=== PATIENT | male | born 1985 | race American Indian/Alaskan Native ===

== ENCOUNTER 2017-01-17 15:07 | Emergency (ER) | payer OTHER ==
[2017-01-17 15:17] VITALS: RESP 16; TEMP 98.8
[2017-01-17 16:14] LABS: BASO # 0.1 K/uL (0.0-0.2); BASO % 1.3 % (0.0-2.0); EOS # 0.2 K/uL (0.0-0.7); EOS % 3.8 % (0.0-4.0); HEMATOCRIT 40.7 % (35.0-51.0); LYMPH # 1.6 K/uL (1.0-4.3); LYMPH % 26.3 % (20.0-40.0); MEAN CELL VOLUME 92.5 fl (80.0-94.0); MEAN CORPUSCULAR HEMOGLOBIN 30.3 pg (27.0-31.0); MEAN CORPUSCULAR HGB CONC 32.8 g/dL (33.0-37.0); MEAN PLATELET VOLUME 8.2 fl (7.2-11.7); MONO # 0.3 K/uL (0.0-0.8); MONO % 5.4 % (0.0-10.0); NEUT # 3.9 K/uL (1.8-7.0); NEUT % 63.2 % (50.0-75.0); RED CELL DISTRIBUTION WIDTH 14.1 % (11.5-14.5); WHITE BLOOD COUNT 6.1 K/uL (4.8-10.8)
[2017-01-17 16:20] LABS: URINE BILIRUBIN NEGATIVE (NEGATIVE); URINE BLOOD MODERATE (NEGATIVE); URINE COLOR COLORLESS (YELLOW); URINE GLUCOSE (UA) NEG (Normal); URINE KETONE NEGATIVE (NEGATIVE); URINE LEUKOCYTE ESTERASE NEG Leu/uL (Negative); URINE PROTEIN NEGATIVE (NEGATIVE); URINE UROBILINOGEN 0.2-1.0 mg/dL (0.2-1.0)
[2017-01-17 16:24] LABS: RBC URINE 20 /hpf (0-3); WBC URINE 1 /hpf (0-5)
[2017-01-17 16:38] LABS: ALB/GLOB RATIO 1.3 (1.0-2.1); ALKALINE PHOSPHATASE 60 U/L (38-126); ALT/SGPT 24 U/L (21-72); AST/SGOT 29 U/L (17-59); BILIRUBIN,TOTAL 0.3 mg/dl (0.2-1.3); BLOOD UREA NITROGEN 12 mg/dl (9-20); CALCIUM 9.2 mg/dL (8.4-10.2); CARBON DIOXIDE 28 mmol/L (22-30); CHLORIDE 109 mmol/L (98-107); GFR AFRICAN-AMERICAN > 60; GLUCOSE,RANDOM 83 mg/dL (75-110); POTASSIUM 3.8 MMOL/L (3.6-5.0); SODIUM 146 mmol/l (132-148); TOTAL PROTEIN 7.3 G/DL (6.3-8.2)
--- NOTE | 2017-01-17 17:14 | ED PDOC ---
HPI: General Adult Time Seen by Provider: 01/17/17 15:17 Chief Complaint (Nursing): Medical Clearance Chief Complaint (Provider): medical and psychiatric clearance History Per: Patient History/Exam Limitations: no limitations Onset/Duration Of Symptoms: Unknown Current Symptoms Are (Timing): Still Present Severity: Mild Additional Complaint(s): 31yo male arrives under police custody for medical and psychiatric clearance. Per police he was wandering in supermarket parking lot approaching female patrons inappropriately. Per police was mumbling, had a warrant and was place under arrest. In ED denies complaints, awake, alert, denies suicidal or homicidal thoughts. Refuses to answer when asked if abuses drugs or etoh. Past Medical History Reviewed: Historical Data, Nursing Documentation, Vital Signs Vital Signs: Last Vital Signs Temp 98.8 F 01/17/17 15:15 Pulse 98 H 01/17/17 15:15 Resp 16 01/17/17 15:15 BP 151/88 H 01/17/17 15:15 Pulse Ox 98 01/17/17 15:15 - Medical History PMH: No Chronic Diseases - Family History Family History: States: Unknown Family Hx - Living Arrangements Living Arrangements: Other - Social History Current smoker - smoking cessation education provided: Yes Alcohol: Other (refuses to answer) - Allergies Allergies/Adverse Reactions: Allergies Allergy/AdvReac Type Severity Reaction Status Date / Time No Known Allergies Allergy Verified 01/17/17 15:14 Review of Systems Constitutional: Negative for: Fever, Chills Cardiovascular: Negative for: Chest Pain, Palpitations Respiratory: Negative for: Cough, Shortness of Breath Gastrointestinal: Negative for: Abdominal Pain, Diarrhea Genitourinary Male: Negative for: Dysuria, Frequency Musculoskeletal: Negative for: Neck Pain, Shoulder Pain Neurological: Negative for: Weakness, Numbness Physical Exam - Reviewed Nursing Documentation Reviewed: Yes Vital Signs Reviewed: Yes - Physical Exam Appears: Positive for: Non-toxic, No Acute Distress Head Exam: Positive for: ATRAUMATIC, NORMAL INSPECTION, NORMOCEPHALIC Skin: Positive for: Normal Color, Warm, DRY Eye Exam: Positive for: EOMI, Normal appearance, PERRL ENT: Positive for: Normal ENT Inspection Neck: Positive for: Normal, Painless ROM Cardiovascular/Chest: Positive for: Regular Rate, Rhythm Respiratory: Positive for: CNT, Normal Breath Sounds Gastrointestinal/Abdominal: Positive for: Normal Exam, Bowel Sounds, Soft Back: Positive for: Normal Inspection Extremity: Positive for: Normal ROM Neurologic/Psych: Positive for: Alert, Oriented, Mood/Affect (flat affect, poor insight but cooperative and calm), Other (equal strength). Negative for: Motor/ Sensory Deficits - Laboratory Results Result Diagrams: 01/17/17 15:45 01/17/17 15:45 - ECG O2 Sat by Pulse Oximetry: 98 Medical Decision Making Medical Decision Making: workup initiated for possible substance abuse in setting of bizarre behavior reported in field. labs reviewed CBC/ chem unremarkable Utox +opiates and PCP EKG sinus rhythm without ST or interval changes. Crisis eval in ED- per psychiatrist Dr Rodrigez can be discharged w police. Monitored in ED 2hrs, no signs somnolence or agitation to suggest opioid or PCP toxidrome. DC to police custody. Disposition - Clinical Impression Clinical Impression: Polysubstance abuse - Patient ED Disposition Is Patient to be Admitted: No Counseled Patient/Family Regarding: Studies Performed, Diagnosis, Need For Followup - Disposition Disposition: Discharged/Transfer to Law Enforcement Disposition Time: 17:18 Condition: STABLE Additional Instructions: Medically and psychiatrically stable for incarceration and/or police custody. Instructions: Polysubstance Abuse (ED)
[2017-01-17 17:37] VITALS: BP 142/70; PULSE 76; O2SAT 97
--- NOTE | 2017-01-18 23:06 | CARD ---
APPROVED REPORT EKG Measurement Heart [id number] <Conclusion> Normal sinus rhythm Early repolarization Normal ECG
== END 2017-01-17 17:35 ==
LOC: H.ER 15:07
DX: F19.10 Other psychoactive substance abuse, uncomplicated (principal)

== ENCOUNTER 2017-03-09 13:49 | Emergency (ER) | payer OTHER ==
[2017-03-09 14:02] VITALS: BMI 26.6
[2017-03-09 14:03] VITALS: BP 141/92; PULSE 91; RESP 16; TEMP 98; O2SAT 100
--- NOTE | 2017-03-09 14:08 | ED PDOC ---
HPI: Psych/Substance Abuse Time Seen by Provider: 03/09/17 14:01 Chief Complaint (Nursing): Psychiatric Evaluation Chief Complaint (Provider): Psych evaluation History Per: Patient History/Exam Limitations: no limitations Onset/Duration Of Symptoms: Hrs Additional Complaint(s): Patient is a 31 y/o male with no significant past medical history brought to the emergency department by EMS for a psych evaluation. Per EMS, patient was running around nude and claiming that he wanted to kill himself. In the ED, patient denies these claims. Also denies any suicidal ideation, hallucinations, homicidal ideation, or any other complaints. PCP: none provided. Past Medical History Vital Signs: Last Vital Signs Temp 98.0 F 03/09/17 13:51 Pulse 91 H 03/09/17 13:51 Resp 16 03/09/17 13:51 BP 141/92 H 03/09/17 13:51 Pulse Ox 100 03/09/17 13:51 - Medical History PMH: Denies: Diabetes, Hepatitis, HIV, HTN, Seizures, Sexually Transmitted Disease - Family History Family History: States: Unknown Family Hx - Allergies Allergies/Adverse Reactions: Allergies Allergy/AdvReac Type Severity Reaction Status Date / Time No Known Allergies Allergy Verified 01/17/17 15:14 Review of Systems ROS Statement: Except As Marked, All Systems Reviewed And Found Negative Psych: Negative for: Suicidal ideation, Other (homicidal ideation, hallucinations) Physical Exam - Reviewed Nursing Documentation Reviewed: Yes Vital Signs Reviewed: Yes - Physical Exam Appears: Positive for: No Acute Distress (appropriate, with normal expression) Head Exam: Positive for: ATRAUMATIC Skin: Positive for: Normal Color, Warm, Dry Eye Exam: Positive for: Normal appearance Neck: Positive for: Normal Cardiovascular/Chest: Positive for: Regular Rate, Rhythm Respiratory: Negative for: Accessory Muscle Use, Respiratory Distress Extremity: Positive for: Normal ROM Neurologic/Psych: Positive for: Alert, Oriented (x3) - Laboratory Results Result Diagrams: 03/09/17 14:40 03/09/17 14:40 - ECG O2 Sat by Pulse Oximetry: 100 (RA) Pulse Ox Interpretation: Normal Medical Decision Making Medical Decision Making: Time: 13:55 Initial impression: Psych evaluation Initial plan: Crisis evaluation Labs Urine drug screening Urinalysis 1:1 sitter due to risk for elopement 14:00 Crisis made aware of patient. 15:14: PT stable well appearing and medically cleared for further crisis eval pt is cleared for polysubstance abuse for MD Rain ~ Scribe Attestation: Documented by Huma Bejarano, acting as a scribe for ABELINO Rivera. Provider Scribe Attestation: All medical record entries made by the Scribe were at my direction and personally dictated by me. I have reviewed the chart and agree that the record accurately reflects my personal performance of the history, physical exam, medical decision making, and the department course for this patient. I have also personally directed, reviewed, and agree with the discharge instructions and disposition. Disposition - Clinical Impression Clinical Impression: Polysubstance abuse - Patient ED Disposition Is Patient to be Admitted: No Counseled Patient/Family Regarding: Studies Performed, Diagnosis, Need For Followup, Rx Given - Disposition Disposition: Routine/Home Disposition Time: 15:36 Condition: STABLE Instructions: Polysubstance Abuse (ED) Forms: [employer] ([place])
[2017-03-09 14:54] LABS: BASO % 1.1 % (0.0-2.0); EOS # 0.1 K/uL (0.0-0.7); EOS % 3.4 % (0.0-4.0); HEMATOCRIT 43.3 % (35.0-51.0); LYMPH # 1.3 K/uL (1.0-4.3); LYMPH % 34.4 % (20.0-40.0); MEAN CELL VOLUME 92.1 fl (80.0-94.0); MEAN CORPUSCULAR HEMOGLOBIN 30.1 pg (27.0-31.0); MEAN CORPUSCULAR HGB CONC 32.7 g/dL (33.0-37.0); MEAN PLATELET VOLUME 8.6 fl (7.2-11.7); MONO # 0.2 K/uL (0.0-0.8); MONO % 4.8 % (0.0-10.0); NEUT # 2.2 K/uL (1.8-7.0); NEUT % 56.3 % (50.0-75.0); NRBC % 0.1 % (0.0-0.0); RED CELL DISTRIBUTION WIDTH 14.9 % (11.5-14.5); WHITE BLOOD COUNT 3.9 K/uL (4.8-10.8)
[2017-03-09 15:02] LABS: ALB/GLOB RATIO 1.3 (1.0-2.1); ALCOHOL SERUM < 10 mg/dl (0-10); ALKALINE PHOSPHATASE 52 U/L (38-126); ALT/SGPT 35 U/L (21-72); AST/SGOT 22 U/L (17-59); BILIRUBIN,TOTAL 0.3 mg/dl (0.2-1.3); BLOOD UREA NITROGEN 16 mg/dl (9-20); CALCIUM 8.8 mg/dL (8.4-10.2); CARBON DIOXIDE 26 mmol/L (22-30); CHLORIDE 105 mmol/L (98-107); GFR AFRICAN-AMERICAN > 60; GLUCOSE,RANDOM 91 mg/dL (75-110); POTASSIUM 3.6 MMOL/L (3.6-5.0); SODIUM 140 mmol/l (132-148); TOTAL PROTEIN 7.4 G/DL (6.3-8.2)
[2017-03-09 15:03] LABS: RBC URINE 10 /hpf (0-3); URINE BILIRUBIN NEGATIVE (NEGATIVE); URINE BLOOD MODERATE (NEGATIVE); URINE COLOR YELLOW (YELLOW); URINE GLUCOSE (UA) NEG (Normal); URINE KETONE NEGATIVE (NEGATIVE); URINE LEUKOCYTE ESTERASE NEG Leu/uL (Negative); URINE PROTEIN NEGATIVE (NEGATIVE); URINE UROBILINOGEN 0.2-1.0 mg/dL (0.2-1.0)
== END 2017-03-09 15:51 | disposition home or self-care (01) ==
LOC: H.ER 13:49
DX: F19.10 Other psychoactive substance abuse, uncomplicated (principal)

== ENCOUNTER 2017-04-06 07:51 | Emergency (ER) | payer OTHER ==
[2017-04-06 07:52] VITALS: BMI 26.6
[2017-04-06 08:00] VITALS: TEMP 97.5
[2017-04-06] MEDS ORDERED: Sodium Chloride 0.9% 1,000 ML IV STA (08:29)
[2017-04-06] MEDS ORDERED: Naloxone 0.4 mg/ml Inj (Adult) IV ONE ×2 (08:30)
--- NOTE | 2017-04-06 08:40 | ED PDOC ---
HPI: General Adult Time Seen by Provider: 04/06/17 08:08 Chief Complaint (Nursing): Dizziness/Lightheaded Chief Complaint (Provider): altered mental status History Per: Patient History/Exam Limitations: other (uncooperative) Onset/Duration Of Symptoms: Days (x1) Current Symptoms Are (Timing): Still Present Additional Complaint(s): Clemente is a 31 y/o male who was brought to the ED for evaluation after being found dozing off in front of a building. States he is not sure why he dozed off. Denies drug or alcohol use. Patient offers no complaints, states he wants to go home. Denies history of seizures or any medical or psychiatric history. No chest pain, dyspnea, weakness, headaches, dizziness, abd pain. Per previous records, patient has history of PCP and marijuana abuse. PMD: None provided Past Medical History Reviewed: Historical Data, Nursing Documentation, Vital Signs Vital Signs: Last Vital Signs Temp 97.5 F L 04/06/17 08:00 Pulse 90 04/06/17 08:00 Resp 17 04/06/17 08:00 BP 128/77 04/06/17 08:00 Pulse Ox 97 04/06/17 10:55 - Medical History PMH: No Chronic Diseases Denies: Diabetes, Hepatitis, HIV, HTN, Seizures, Sexually Transmitted Disease - Surgical History Surgical History: No Surg Hx - Family History Family History: States: Unknown Family Hx - Social History Current smoker - smoking cessation education provided: No Alcohol: None Drugs: Denies - Allergies Allergies/Adverse Reactions: Allergies Allergy/AdvReac Type Severity Reaction Status Date / Time No Known Allergies Allergy Verified 04/06/17 08:10 Review of Systems ROS Statement: Except As Marked, All Systems Reviewed And Found Negative Constitutional: Negative for: Fever, Chills Eyes: Negative for: Vision Change Cardiovascular: Negative for: Chest Pain, Light Headedness Respiratory: Negative for: Cough, Shortness of Breath Gastrointestinal: Negative for: Nausea, Vomiting, Diarrhea Neurological: Negative for: Weakness, Numbness, Seizures, Headache, Dizziness Physical Exam - Reviewed Nursing Documentation Reviewed: Yes Vital Signs Reviewed: Yes - Physical Exam Appears: Positive for: Non-toxic, No Acute Distress Head Exam: Positive for: ATRAUMATIC, NORMAL INSPECTION, NORMOCEPHALIC Skin: Positive for: Normal Color, Warm, Dry Eye Exam: Positive for: EOMI, Normal appearance, PERRL ENT: Positive for: Normal ENT Inspection Neck: Positive for: Normal, Painless ROM, Supple Cardiovascular/Chest: Positive for: Regular Rate, Rhythm. Negative for: Murmur Respiratory: Positive for: Normal Breath Sounds. Negative for: Accessory Muscle Use, Respiratory Distress Gastrointestinal/Abdominal: Positive for: Normal Exam, Soft. Negative for: Tenderness Back: Positive for: Normal Inspection. Negative for: L CVA Tenderness, R CVA Tenderness, Vertebral Tenderness Extremity: Positive for: Normal ROM. Negative for: Pedal Edema, Deformity Neurologic/Psych: Positive for: Alert, frame runner II-XII, Oriented. Negative for: Motor/Sensory Deficits, Aphasia, Facial Droop - Laboratory Results Result Diagrams: 04/06/17 08:53 04/06/17 08:53 Interpretation Of Abn Labs: pcp and etoh - ECG ECG: Positive for: Interpreted By Me, Viewed By Me ECG Rhythm: Positive for: Normal QRS, Normal ST Segment, Sinus Rhythm O2 Sat by Pulse Oximetry: 97 (RA) Pulse Ox Interpretation: Normal - CT Scan/US CT Head Other Rad Studies (CT/US): Read By Radiologist, Radiology Report Reviewed Other Rad Interpretation: Unremarkable unenhanced CT of the Head - Progress ED Course And Treament: Labs reviewed, and are grossly normal. Alcohol level is 160. Positive for PCP. CT negative. 1405: Stable. AAOx3. Stable. Tolerated PO. Fu with pcp. Not suicidal or homicidal. Active. Ambulated with no issues. Medical Decision Making Medical Decision Making: Time: 8:28 Initial Plan: --Alcohol serum --BMP --Urine drug screen --CBC --Urine dip --NS IV 1000 ml at 1000 mls/hr --POC blood glucose --Patient placed on 1:1 observation due to risk of elopement --Pending CT Head w/o contrast Scribe Attestation: Documented by Mary Kate Rivero, acting as a scribe for Yariel Garcia MD Provider Scribe Attestation: All medical record entries made by the Scribe were at my direction and personally dictated by me. I have reviewed the chart and agree that the record accurately reflects my personal performance of the history, physical exam, medical decision making, and the department course for this patient. I have also personally directed, reviewed, and agree with the discharge instructions and disposition. Disposition - Clinical Impression Clinical Impression: Polysubstance abuse - Patient ED Disposition Is Patient to be Admitted: No Counseled Patient/Family Regarding: Studies Performed, Diagnosis, Need For Followup - Disposition Referrals: [facility]Outside] - 04/10/17 Disposition: Routine/Home Disposition Time: 14:06 Condition: STABLE Additional Instructions: Return if not better in 3 days. Instructions: Polysubstance Abuse (ED)
[2017-04-06 09:07] LABS: ALCOHOL SERUM 160 mg/dl (0-10); BASO # 0.1 K/uL (0.0-0.2); BASO % 1.1 % (0.0-2.0); BLOOD UREA NITROGEN 14 mg/dl (9-20); CALCIUM 9.4 mg/dL (8.4-10.2); CARBON DIOXIDE 23 mmol/L (22-30); CHLORIDE 109 mmol/L (98-107); EOS # 0.1 K/uL (0.0-0.7); EOS % 2.2 % (0.0-4.0); GFR AFRICAN-AMERICAN > 60; GLUCOSE,RANDOM 76 mg/dL (75-110); HEMATOCRIT 45.2 % (35.0-51.0); LYMPH # 1.9 K/uL (1.0-4.3); LYMPH % 29.4 % (20.0-40.0); MEAN CORPUSCULAR HEMOGLOBIN 30.3 pg (27.0-31.0); MEAN CORPUSCULAR HGB CONC 33.3 g/dL (33.0-37.0); MEAN PLATELET VOLUME 8.7 fl (7.2-11.7); MONO # 0.3 K/uL (0.0-0.8); MONO % 4.5 % (0.0-10.0); NEUT % 62.8 % (50.0-75.0); NRBC % 0.2 % (0.0-0.0); RED CELL DISTRIBUTION WIDTH 14.4 % (11.5-14.5); SODIUM 148 mmol/l (132-148); WHITE BLOOD COUNT 6.4 K/uL (4.8-10.8)
--- NOTE | 2017-04-06 09:27 | CT ---
PROCEDURE: CT HEAD WITHOUT CONTRAST. HISTORY: headache COMPARISON: None available. TECHNIQUE: Axial computed tomography images were obtained through the head/brain without intravenous contrast. Radiation dose: Total exam DLP = 1088.77 mGy-cm. This CT exam was performed using one or more of the following dose reduction techniques: Automated exposure control, adjustment of the mA and/or kV according to patient size, and/or use of iterative reconstruction technique. FINDINGS: HEMORRHAGE: No intracranial hemorrhage. BRAIN: Normal acevedo-white matter differentiation and density are appreciated throughout the cerebrum and cerebellum with the brainstem appearing unremarkable as well. There is no mass effect. There is no suspicious extra-axial fluid collection in the midline brain anatomy appears diffusely unremarkable. VENTRICLES: Unremarkable. No hydrocephalus. CALVARIUM: Unremarkable. PARANASAL SINUSES: Unremarkable as visualized. No significant inflammatory changes. MASTOID AIR CELLS: Unremarkable as visualized. No inflammatory changes. OTHER FINDINGS: None. IMPRESSION: Unremarkable unenhanced CT of the Head.
[2017-04-06 15:31] VITALS: BP 101/64; PULSE 61; RESP 19; O2SAT 100
== END 2017-04-06 15:28 | disposition home or self-care (01) ==
LOC: H.ER 07:51
DX: F12.10 Cannabis abuse, uncomplicated (principal)
CPT/HCPCS: 70450; 80048; 80320; 80324; 80345; 80346; 80349; 80353; 80358; 80361; 82948; 83992; 85025; 99284; J7040

== ENCOUNTER 2017-04-19 18:27 | Inpatient (IN) | payer MEDICAID, OTHER ==
[2017-04-19 18:27] VITALS: BMI 26.6
[2017-04-19 18:52] VITALS: O2SAT 99
--- NOTE | 2017-04-19 19:18 | ED PDOC ---
HPI: Psych/Substance Abuse Time Seen by Provider: 04/19/17 18:51 Chief Complaint (Nursing): Psychiatric Evaluation Chief Complaint (Provider): crisis eval History Per: Patient Additional Complaint(s): 31-year-old male presents to emergency department for crisis evaluation. Patient 's cousin visited him at home and noted that he was not in a good state of physical or mental health. Mobile crisis unit was sent to home and patient, along with his sister with whom he lives, was brought here for crisis eval. Patient states he is just here for "a checkup." He offers no acute complaints. He denies any suicidal or homicidal ideation. He denies auditory or visual hallucinations. Patient also denies alcohol or drug use. Past Medical History Reviewed: Historical Data, Nursing Documentation, Vital Signs Vital Signs: Last Vital Signs Temp 99.2 F 04/19/17 18:49 Pulse 120 H 04/19/17 18:49 Resp 20 04/19/17 18:49 BP 157/91 H 04/19/17 18:49 Pulse Ox 99 04/19/17 18:49 - Medical History Other PMH: Patient denies any medical problems - Family History Family History: States: No Known Family Hx - Living Arrangements Living Arrangements: With Family - Social History Current smoker - smoking cessation education provided: No Alcohol: None Drugs: Denies - Allergies Allergies/Adverse Reactions: Allergies Allergy/AdvReac Type Severity Reaction Status Date / Time No Known Allergies Allergy Verified 04/06/17 08:10 Review of Systems ROS Statement: Except As Marked, All Systems Reviewed And Found Negative Constitutional: Negative for: Fever Cardiovascular: Negative for: Chest Pain Respiratory: Negative for: Cough Gastrointestinal: Negative for: Nausea, Vomiting Psych: Negative for: Psychosis, Suicidal ideation Physical Exam - Reviewed Nursing Documentation Reviewed: Yes Vital Signs Reviewed: Yes - Physical Exam Appears: Positive for: Well, Non-toxic, No Acute Distress Head Exam: Positive for: ATRAUMATIC Skin: Negative for: Rash Eye Exam: Positive for: Normal appearance Cardiovascular/Chest: Positive for: Regular Rate, Rhythm Respiratory: Positive for: Normal Breath Sounds Neurologic/Psych: Positive for: Alert, Oriented, Mood/Affect (flat affect) - Laboratory Results Result Diagrams: 04/19/17 19:20 04/19/17 19:20 - ECG O2 Sat by Pulse Oximetry: 99 Pulse Ox Interpretation: Normal - Other Rad CXR X-Ray: Interpreted by Me, Viewed By Me X-Ray Interpretation: no acute finding Medical Decision Making Medical Decision Makin31 year old here for crisis eval Previous records reviewed. Patient was evaluated by psychiatric department on April 06 in the ED and at that time was positive for alcohol and PCP. Previous visit on March 09 also showed positive PCP use. Plan: CBC CMP Urine drug screen Alcohol level Urinalysis Chest x-ray EKG 1:1 bedside observation Crisis consult As per crisis counselor and psychiatrist continuous washer operator, Dr. Michel, patient does meet criteria for admission. Patient agrees to stay and signed himself in. Patient is medically stable for psychiatric admission. Disposition - Clinical Impression Clinical Impression: Schizophrenia - Patient ED Disposition Is Patient to be Admitted: Yes - Disposition Disposition Time: 21:18 Condition: STABLE - Pt Status Changed To: Hospital Disposition Of: Inpatient - Admit Certification Admit to Inpatient:: After my assessment, the patient will require hospitalization for at least two midnights. This is because of the severity of symptoms shown, intensity of services needed, and/or the medical risk in this patient being treated as an outpatient. - POA Present On Arrival: None Results - Lab Results Lab Results: 04/19/17 04/19/17 04/19/17 19:30 19:30 19:20 WBC 3.4 L RBC 4.31 L Hgb 12.9 D Hct 40.5 MCV 93.9 D MCH 29.9 MCHC 31.9 L RDW 15.0 H Plt Count 179 MPV 8.3 Neut % (Auto) 63.7 Lymph % (Auto) 23.8 [place] % (Auto) 8.9 Eos % (Auto) 2.7 Baso % (Auto) 0.9 Neut # 2.1 Lymph # 0.8 L [place] # 0.3 Eos # 0.1 Baso # 0.0 Sodium Potassium Chloride Carbon Dioxide Anion Gap BUN Creatinine Est GFR ( Amer) Est GFR (Non-Af Amer) Random Glucose Calcium Total Bilirubin AST ALT Alkaline Phosphatase Total Protein Albumin Globulin Albumin/Globulin Ratio Urine Color Yellow Urine Clarity Clear Urine pH 6.0 Ur Specific [place] 1.025 Urine Protein 30 Urine Glucose (UA) Neg Urine Ketones Trace Urine Blood Moderate Urine Nitrate Negative Urine Bilirubin Negative Urine Urobilinogen 0.2-1.0 Ur Leukocyte Esterase Neg Urine RBC (Auto) 20 H Urine Microscopic WBC 1 Ur Squamous Epith Cells 2 Urine Bacteria Rare Urine Opiates Screen Negative Urine Methadone Screen Negative Ur Barbiturates Screen Negative Ur Phencyclidine Scrn Positive H Ur Amphetamines Screen Negative U Benzodiazepines Scrn Negative U Oth Cocaine Metabols Negative U Cannabinoids Screen Positive H Alcohol, Quantitative 04/19/17 19:20 WBC RBC Hgb Hct MCV MCH MCHC RDW Plt Count MPV Neut % (Auto) Lymph % (Auto) [place] % (Auto) Eos % (Auto) Baso % (Auto) Neut # Lymph # [place] # Eos # Baso # Sodium 139 Potassium 3.5 L Chloride 106 Carbon Dioxide 26 Anion Gap 11 BUN 14 Creatinine 1.0 Est GFR ( Amer) > 60 Est GFR (Non-Af Amer) > 60 Random Glucose 83 Calcium 8.8 Total Bilirubin 0.4 AST 50 ALT 44 Alkaline Phosphatase 52 Total Protein 7.2 Albumin 4.2 Globulin 3.1 Albumin/Globulin Ratio 1.3 Urine Color Urine Clarity Urine pH Ur Specific [place] Urine Protein Urine Glucose (UA) Urine Ketones Urine Blood Urine Nitrate Urine Bilirubin Urine Urobilinogen Ur Leukocyte Esterase Urine RBC (Auto) Urine Microscopic WBC Ur Squamous Epith Cells Urine Bacteria Urine Opiates Screen Urine Methadone Screen Ur Barbiturates Screen Ur Phencyclidine Scrn Ur Amphetamines Screen U Benzodiazepines Scrn U Oth Cocaine Metabols U Cannabinoids Screen Alcohol, Quantitative < 10
[2017-04-19 19:35] LABS: BASO % 0.9 % (0.0-2.0); EOS # 0.1 K/uL (0.0-0.7); EOS % 2.7 % (0.0-4.0); HEMATOCRIT 40.5 % (35.0-51.0); LYMPH # 0.8 K/uL (1.0-4.3); LYMPH % 23.8 % (20.0-40.0); MEAN CELL VOLUME 93.9 fl (80.0-94.0); MEAN CORPUSCULAR HEMOGLOBIN 29.9 pg (27.0-31.0); MEAN CORPUSCULAR HGB CONC 31.9 g/dL (33.0-37.0); MEAN PLATELET VOLUME 8.3 fl (7.2-11.7); MONO # 0.3 K/uL (0.0-0.8); MONO % 8.9 % (0.0-10.0); NEUT # 2.1 K/uL (1.8-7.0); NEUT % 63.7 % (50.0-75.0); NRBC % 0.1 % (0.0-0.0); WHITE BLOOD COUNT 3.4 K/uL (4.8-10.8)
[2017-04-19 19:46] LABS: ALB/GLOB RATIO 1.3 (1.0-2.1); ALCOHOL SERUM < 10 mg/dl (0-10); ALKALINE PHOSPHATASE 52 U/L (38-126); ALT/SGPT 44 U/L (21-72); AST/SGOT 50 U/L (17-59); BILIRUBIN,TOTAL 0.4 mg/dl (0.2-1.3); BLOOD UREA NITROGEN 14 mg/dl (9-20); CALCIUM 8.8 mg/dL (8.4-10.2); CARBON DIOXIDE 26 mmol/L (22-30); CHLORIDE 106 mmol/L (98-107); GFR AFRICAN-AMERICAN > 60; GLUCOSE,RANDOM 83 mg/dL (75-110); POTASSIUM 3.5 MMOL/L (3.6-5.0); SODIUM 139 mmol/l (132-148); TOTAL PROTEIN 7.2 G/DL (6.3-8.2)
[2017-04-19 19:56] LABS: RBC URINE 20 /hpf (0-3); URINE BACTERIA RARE (<OCC); URINE BILIRUBIN NEGATIVE (NEGATIVE); URINE BLOOD MODERATE (NEGATIVE); URINE COLOR YELLOW (YELLOW); URINE GLUCOSE (UA) NEG (Normal); URINE KETONE TRACE mg/dL (NEGATIVE); URINE LEUKOCYTE ESTERASE NEG Leu/uL (Negative); URINE PROTEIN 30 mg/dL (NEGATIVE); URINE UROBILINOGEN 0.2-1.0 mg/dL (0.2-1.0); WBC URINE 1 /hpf (0-5)
[2017-04-19] MEDS ORDERED: Alum-Mag Hydrox-Simethicone Susp (30 mL) PO PRN (23:48)
[2017-04-19] MEDS ORDERED: Magnesium Hydroxide Susp 30 ml UD PO PRN (23:48)
[2017-04-19] MEDS ORDERED: DiphenhydrAMINE 50 mg/ml Inj IM PRN (23:48)
--- NOTE | 2017-04-20 00:14 | PCM.BM ---
Treatment Plan Problems - Problems identified on initial assessmt Medication nonadherence Date Initiated: 04/20/17 Time Initiated: 00:13 Assessment reference: NA Status: Active Auditory Hallucinations Date Initiated: 04/20/17 Time Initiated: 00:13 Assessment reference: NA Status: Active Self Care Deficit Date Initiated: 04/20/17 Time Initiated: 00:14 Assessment reference: NA Status: Active Treatment assets and liabiliti Patient Assests: ADL independent, negotiates basic needs Patient Liabilities: poor support system, substance abuse - Milieu Protocol Maintain good personal hygiene: daily Encourage regular showers, every shift Remind patient to perform daily oral care Conduct patient checks and document Observation sheet: Q15 minutes Maintain personal safety: every shift Educate patient to report safety concerns to staff, every shift Monitor environment for contraband/sharps Medication safety: Monitor for expected outcome, potential side effects: every shift, Assess barriers to learning: every shift, Assess readiness for medication education: every shift
[2017-04-20 07:41] LABS: T4 7.53 ug/dl (5.5-11.0)
[2017-04-20 07:54] LABS: THYROID STIMULATING HORMONE 2.45 mIU/ML (0.46-4.68)
--- NOTE | 2017-04-20 10:12 | RAD ---
HISTORY: clearance COMPARISON: No prior. FINDINGS: LUNGS: No active pulmonary disease. PLEURA: No significant pleural effusion identified, no pneumothorax apparent. CARDIOVASCULAR: Normal. OSSEOUS STRUCTURES: No significant abnormalities. VISUALIZED UPPER ABDOMEN: Normal. OTHER FINDINGS: None. IMPRESSION: No active disease.
--- NOTE | 2017-04-20 10:36 | CARD ---
APPROVED REPORT EKG Measurement Heart [id number] <Conclusion> Normal sinus rhythm Normal ECG
[2017-04-20] MEDS: Risperidone M tab 1 MG PO SCH ×2 (11:28→17:36)
[2017-04-20] MEDS: Divalproex 500 mg DR(BID formulation) PO SCH ×2 (11:28→17:36)
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
[2017-04-21] MEDS: Risperidone M tab 1 MG PO SCH (09:15)
[2017-04-21] MEDS: Divalproex 500 mg DR(BID formulation) PO SCH ×2 (09:56→17:44)
--- NOTE | 2017-04-21 14:30 | PCM.PYCHPN ---
Psychiatric Progress Note - Psychiatric Progress Note Patient seen today, length of contact: pt evaluated discussed with team chart reviewed Patient Chief Complaint: I NEED TO TAKE CARE OF MYSELF Problems Identified/Issues Discussed: PT ON EVALUATION UNKEMPT, POOR EYE CONTACT THOUGHT PROCESS TANGENTIAL AND CIRCUMSTANTIAL WITH THOUGHT BLOCKING PT DENIED ANY CURRENT COMMAND HALLUCINATIONS, DENIED S/H I , AGREED TO BE STARTED ON RISPERIDONE CONSTA Medical Problems: multiple inpatient hospitalizations, history of non compliance with medications DSM 5 Symptoms Update: SCHIZOPHRENIA CANNABIS USE DISORDER PCP USE DISORDER Medication Change: Yes (INCREASE RISPERIDONE) Medical Record Reviewed: Yes Mental Status Examination - Cognitive Function Orientation: Person, Place Memory: Intact Attention: Poor Concentration: Poor Association: Loose Fund of Knowledge: Poor Decription of patient's judgement and insights: POOR INSIGHT AND JUDGEMENT - Mood Mood: Anxious - Affect Affect: Constricted - Speech Speech: Loud - Formal Thought Process Formal Thought Process: Hallucinations, Paranoia, Circumstantial Psychotic Thoughts and Behaviors: PT THOUGHT PROCESS DISORGANIZED, DENIED COMMAND HALLUCINATIONS - Suicidal Ideation Suicidal Ideation: No - Homicidal Ideation Homicidal Ideation: No Goal/Treatment Plan - Goal/Treatment Plan Need for Continued Stay: Remain at risks for inpatient hospitalization, Discharge may exacerbated symptoms Progress Toward Problem(s) and Goals/Treatment Plan: DEPAKOTE 500MG BID INCREASE RISPERIDONE 1MG DAILY AND 2MG QHS WITH PLAN TO UPTITRATE SUPPORTIVE AND GROUP THERAPY Estimated Date of D/C: 04/25/17
[2017-04-21] MEDS: Risperidone M TAB 2 MG PO SCH (21:03)
[2017-04-22] MEDS: Divalproex 500 mg DR(BID formulation) PO SCH ×2 (10:19→16:53)
[2017-04-22] MEDS: Risperidone M tab 1 MG PO SCH (10:19)
[2017-04-22] MEDS ORDERED: risperiDONE Consta 25mg/2ml Syringe IM ONE (10:50)
--- NOTE | 2017-04-22 10:56 | PCM.PYCHPN ---
Psychiatric Progress Note - Psychiatric Progress Note Patient seen today, length of contact: pt evaluated discussed with team chart reviewed Patient Chief Complaint: I am doing well Problems Identified/Issues Discussed: PT ON EVALUATION UNKEMPT, POOR EYE CONTACT THOUGHT PROCESS TANGENTIAL AND CIRCUMSTANTIAL WITH THOUGHT BLOCKING, PT WITH PARTIAL COMPLIANCE WITH MEDICATIONS PT DENIED ANY CURRENT COMMAND HALLUCINATIONS, DENIED S/H I , AGREED TO BE STARTED ON RISPERIDONE CONSTA Medical Problems: multiple inpatient hospitalizations, history of non compliance with medications DSM 5 Symptoms Update: SCHIZOPHRENIA POLYSUBSTANCE USE DISORDER Medication Change: Yes (START RISPERIDONE CONSTA) Medical Record Reviewed: Yes Mental Status Examination - Cognitive Function Orientation: Person, Place Memory: Intact Attention: Poor Concentration: Poor Association: Loose Fund of Knowledge: Poor Decription of patient's judgement and insights: POOR INSIGHT AND JUDGEMENT - Mood Mood: Anxious - Affect Affect: Constricted - Speech Speech: Loud - Formal Thought Process Formal Thought Process: Hallucinations, Paranoia, Circumstantial Psychotic Thoughts and Behaviors: PT THOUGHT PROCESS DISORGANIZED, DENIED COMMAND HALLUCINATIONS - Suicidal Ideation Suicidal Ideation: No - Homicidal Ideation Homicidal Ideation: No Goal/Treatment Plan - Goal/Treatment Plan Need for Continued Stay: Remain at risks for inpatient hospitalization, Discharge may exacerbated symptoms Progress Toward Problem(s) and Goals/Treatment Plan: DEPAKOTE 500MG BID INCREASE RISPERIDONE 1MG DAILY AND 2MG QHS AND START RISPERIDONE CONSTA 25 MG IM SUPPORTIVE AND GROUP THERAPY Estimated Date of D/C: 04/25/17
[2017-04-22] MEDS: Risperidone M TAB 2 MG PO SCH (21:17)
[2017-04-23] MEDS: Risperidone M tab 1 MG PO SCH (09:14)
[2017-04-23] MEDS: Divalproex 500 mg DR(BID formulation) PO SCH ×2 (09:14→17:35)
--- NOTE | 2017-04-23 11:33 | PCM.PYCHPN ---
Psychiatric Progress Note - Psychiatric Progress Note Patient seen today, length of contact: pt evaluated discussed with team chart reviewed Patient Chief Complaint: I am alright Problems Identified/Issues Discussed: PT ON EVALUATION CONTINUES TO BE UNKEMPT, DRESSED IN A HOSPITAL GOWN, BETTER EYE CONTACT AND MORE COMMUNICATION WITH STAFF, THOUGHT PROCESS CIRCUMSTANTIAL WITH THOUGHT BLOCKING, PT WITH PARTIAL COMPLIANCE WITH MEDICATIONS PT DENIED ANY CURRENT COMMAND HALLUCINATIONS, DENIED S/H I , STARTED ON RISPERIDONE CONSTA 25 MG YESTERDAY, DENIED ANY CURRENT SIDE EFFECTS OF MEDICATIONS Medical Problems: multiple inpatient hospitalizations, history of non compliance with medications DSM 5 Symptoms Update: SCHIZOAFFECTIVE DISORDER BIPOLAR Medication Change: Yes (START COGENTIN 0.5MG BID) Medical Record Reviewed: Yes Mental Status Examination - Cognitive Function Orientation: Person, Place Memory: Intact Attention: Poor Concentration: Poor Association: Loose Fund of Knowledge: Poor Decription of patient's judgement and insights: POOR INSIGHT AND JUDGEMENT - Mood Mood: Anxious - Affect Affect: Constricted - Speech Speech: Loud - Formal Thought Process Formal Thought Process: Hallucinations, Paranoia, Circumstantial Psychotic Thoughts and Behaviors: PT THOUGHT PROCESS DISORGANIZED, DENIED COMMAND HALLUCINATIONS - Suicidal Ideation Suicidal Ideation: No - Homicidal Ideation Homicidal Ideation: No Goal/Treatment Plan - Goal/Treatment Plan Need for Continued Stay: Remain at risks for inpatient hospitalization, Discharge may exacerbated symptoms Progress Toward Problem(s) and Goals/Treatment Plan: DEPAKOTE 500MG BID CONTINUE WITH RISPERIDONE 1MG DAILY AND 2MG QHS AND START RISPERIDONE CONSTA 25 MG IM START COGENTIN 0.5 MG BID SUPPORTIVE AND GROUP THERAPY Estimated Date of D/C: 04/25/17
[2017-04-23] MEDS: Risperidone M TAB 2 MG PO SCH (21:07)
[2017-04-24] MEDS: Risperidone M tab 1 MG PO SCH (09:28)
[2017-04-24] MEDS: Divalproex 500 mg DR(BID formulation) PO SCH ×2 (09:28→17:02)
--- NOTE | 2017-04-24 14:05 | PCM.PYCHPN ---
Psychiatric Progress Note - Psychiatric Progress Note Patient seen today, length of contact: pt evaluated discussed with team chart reviewed Patient Chief Complaint: I am alright Problems Identified/Issues Discussed: PT ON EVALUATION CONTINUES TO BE UNKEMPT, DRESSED IN A HOSPITAL GOWN, BETTER EYE CONTACT AND MORE COMMUNICATION WITH STAFF, THOUGHT PROCESS CIRCUMSTANTIAL WITH THOUGHT BLOCKING, PT WITH PARTIAL COMPLIANCE WITH MEDICATIONS PT DENIED ANY CURRENT COMMAND HALLUCINATIONS, DENIED S/H I , STARTED ON RISPERIDONE CONSTA 25 MG YESTERDAY, DENIED ANY CURRENT SIDE EFFECTS OF MEDICATIONS Medical Problems: pt on evaluation continues to be unkempt not attending to personal hygiene disorganized, speech, sexually preoccupied, needs encouragement for mrdication compliance, presenting with thought blocking denied any current suicidal or homicidal ideations denied command hallucinations no reported side effects of medications DSM 5 Symptoms Update: schizoaffective disorder bipolar Medication Change: No (START COGENTIN 0.5MG BID) Medical Record Reviewed: Yes Mental Status Examination - Cognitive Function Orientation: Person, Place Memory: Intact Attention: Poor Concentration: Poor Association: Loose Fund of Knowledge: Poor Decription of patient's judgement and insights: POOR INSIGHT AND JUDGEMENT - Mood Mood: Anxious - Affect Affect: Constricted - Speech Speech: Loud - Formal Thought Process Formal Thought Process: Hallucinations, Paranoia, Circumstantial Psychotic Thoughts and Behaviors: PT THOUGHT PROCESS DISORGANIZED, DENIED COMMAND HALLUCINATIONS - Suicidal Ideation Suicidal Ideation: No - Homicidal Ideation Homicidal Ideation: No Goal/Treatment Plan - Goal/Treatment Plan Need for Continued Stay: Remain at risks for inpatient hospitalization, Discharge may exacerbated symptoms Progress Toward Problem(s) and Goals/Treatment Plan: DEPAKOTE 500MG BID, follow up on depakote level and uptitrate dose accordingly CONTINUE WITH RISPERIDONE 1MG DAILY AND 2MG QHS , RISPERIDONE CONSTA 25 MG IM START COGENTIN 0.5 MG BID SUPPORTIVE AND GROUP THERAPY Estimated Date of D/C: 04/25/17
[2017-04-24 16:51] VITALS: RESP 18
[2017-04-24] MEDS: Risperidone M TAB 2 MG PO SCH (21:08)
[2017-04-25] MEDS: Divalproex 500 mg DR(BID formulation) PO SCH ×2 (09:41→17:00)
[2017-04-25] MEDS: Risperidone M tab 1 MG PO SCH ×2 (09:43→17:01)
--- NOTE | 2017-04-25 13:45 | PCM.PYCHPN ---
Psychiatric Progress Note - Psychiatric Progress Note Patient seen today, length of contact: pt evaluated discussed with team chart reviewed Patient Chief Complaint: I am alright I want to leave Problems Identified/Issues Discussed: PT ON EVALUATION CONTINUES TO BE UNKEMPT, DRESSED IN A HOSPITAL GOWN, SEXUALLY PREOCCUPIED, CONTINUES TO BE DISORGANIZED, SPEECH CIRCUMSATANTIAL, DENIED ANY CURRENT S/H I DENIED PERCEPTUAL DISTURBANCES, LIMITED INSIGHT INTO ILLNESS DSM 5 Symptoms Update: SCHIZOAFFECTIVE DISORDER BIPOLAR Medication Change: Yes (INCREASE DEPAKOTE) Medical Record Reviewed: Yes Mental Status Examination - Cognitive Function Orientation: Person, Place Memory: Intact Attention: Poor Concentration: Poor Association: Loose Fund of Knowledge: Poor Decription of patient's judgement and insights: POOR INSIGHT AND JUDGEMENT - Mood Mood: Anxious - Affect Affect: Constricted - Speech Speech: Loud - Formal Thought Process Formal Thought Process: Hallucinations, Paranoia, Circumstantial Psychotic Thoughts and Behaviors: PT THOUGHT PROCESS DISORGANIZED, DENIED COMMAND HALLUCINATIONS - Suicidal Ideation Suicidal Ideation: No - Homicidal Ideation Homicidal Ideation: No Goal/Treatment Plan - Goal/Treatment Plan Need for Continued Stay: Remain at risks for inpatient hospitalization, Discharge may exacerbated symptoms Progress Toward Problem(s) and Goals/Treatment Plan: DEPAKOTE LEVEL 47 WILL INCREASE DEPAKOTE TO 750MG BID DECREASE RISPERIDONE ORAL TO2MG CONTINUE WITH RISPERIDONE CONSTA 25MG IM GROUP AND SUPPORTIVE THERAPY Estimated Date of D/C: 04/25/17
[2017-04-25] MEDS: Divalproex 250 mg DR(BID formulation) PO SCH (17:02)
[2017-04-26] MEDS: Divalproex 250 mg DR(BID formulation) PO SCH ×2 (09:34→17:42)
[2017-04-26] MEDS: Risperidone M tab 1 MG PO SCH ×2 (09:34→17:41)
--- NOTE | 2017-04-26 18:39 | PCM.PYCHPN ---
Psychiatric Progress Note - Psychiatric Progress Note Patient seen today, length of contact: pt evaluated discussed with team chart reviewed Patient Chief Complaint: I am alright WHEN CAN I go Problems Identified/Issues Discussed: pt on evaluation less disorganized, speech more goal directed, continues to have limited insight no side effects of medications denied S/HI Medical Problems: pt on evaluation continues to be unkempt not attending to personal hygiene disorganized, speech, sexually preoccupied, needs encouragement for mrdication compliance, presenting with thought blocking denied any current suicidal or homicidal ideations denied command hallucinations no reported side effects of medications DSM 5 Symptoms Update: SCHIZOAFFECTIVE DISORDER Medication Change: No Medical Record Reviewed: Yes Mental Status Examination - Cognitive Function Orientation: Person, Place Memory: Intact Attention: WNL Concentration: WNL Association: WNL Fund of Knowledge: Poor Decription of patient's judgement and insights: POOR INSIGHT AND JUDGEMENT - Mood Mood: Neutral - Affect Affect: Constricted - Speech Speech: Appropriate - Formal Thought Process Formal Thought Process: Circumstantial Psychotic Thoughts and Behaviors: PT DENIED COMMAND HALLUCINATIONS - Suicidal Ideation Suicidal Ideation: No - Homicidal Ideation Homicidal Ideation: No Goal/Treatment Plan - Goal/Treatment Plan Need for Continued Stay: Remain at risks for inpatient hospitalization, Discharge may exacerbated symptoms Progress Toward Problem(s) and Goals/Treatment Plan: CONTINUE DEPAKOTE 750MG BID AND RISPERIDONE 2MG CONTINUE WITH RISPERIDONE CONSTA 25MG IM GROUP AND SUPPORTIVE THERAPY Estimated Date of D/C: 04/26/17
[2017-04-27] MEDS: Divalproex 250 mg DR(BID formulation) PO SCH (09:06)
[2017-04-27] MEDS: Risperidone M tab 1 MG PO SCH (09:09)
[2017-04-27 09:10] VITALS: BP 142/73; PULSE 77; TEMP 97.7
--- NOTE | 2017-04-27 12:53 | PCM.PYCHDC ---
Mental Status Examination - Mental Status Examination Orientation: Person, Place, Situation Memory: Intact Mood: Neutral Affect: Constricted Attention: WNL Concentration: WNL Fund of Knowledge: Poor Formal Thought Process: Circumstantial Description of patient's judgement and insight: POOR INSIGHT AND JUDGEMENT Psychotic Thoughts and Behaviors: PT DENIED perceptual disturbances,COMMAND HALLUCINATIONS, non were ellicited Suicidal Ideation: No Current Homicidal Ideation?: No Discharge Summary - Discharge Note Reason for Hospitalization: T is a 31 year-old, AA, Single Male, who was brought to the ED via EMS as pt's cousin contacted [facility] due to pt presenting with "bizarre" behavior pt has extensive legal history and he has been [place] [facility] [place]. PER pt cousin reported in the past couple of weeks pt has been exhibiting "bizarre " behaviors as pt has been walking around the mancia in the building he resides in "naked" and he also has been eating "raw meat", and he is following "little children" around the building. pt hasbeen physically aggressive towards his cousin pt has multiple arrests for sexual assault, stalking, and criminal assault. at pt has also been non-adherent to taking his medication as prescribed. pt has history of polysubstance use on evaluation he presented with thought block, internally preoccupied, pt denied S/HI denied command hallucinations urine toxicology positive for PCP and cannabis Consultations:: List each consultation separately and include: 1. Reason for request. 2. Findings. 3. Follow-up Summary of Hospital Course include:: 1. Description of specific treatment plan utilized for patients during their course of treatmen. 2. Summarize the time- course for resolution of acute symptoms and/or regressed behaviors. 3. Describe issues identified and worked on during hospitalization. 4. Describe medication utilized. 5. Describe medical problems identified and treated. 6. Reassessment of suicide risk Summary of Hospital Course: PT was started on risperidone, dose was uptitrated to3mg. pt evert lim started on risperidone consta IM 25 mg to ensure compliance last dose was on 04/22/17 next dose due on 05/06/17 pt waas placed on depakote 750mg bid on discharge pt mental staus was stable, denied S/H I denied command hallucinations follow up arranged at outpatient program - Final Diagnosis (DSM 5) Condition upon Discharge: STABLE DSM 5: schizoaffective disorder PCP use disorder cannabis use disorder Disposition: HOME/ ROUTINE Follow-up Treatment Plan: CONTINUE DEPAKOTE 750MG BID AND RISPERIDONE 2MG CONTINUE WITH RISPERIDONE CONSTA 25MG IM GROUP AND SUPPORTIVE THERAPY Prescriptions/Medication Reconciliation: Benztropine [Cogentin] 0.5 mg PO BID 30 Days #60 tab Divalproex [Depakote DR(*BID*)] 750 mg PO BID 30 Days #90 tcp Risperidone [Risperdal M-TAB] 1 mg PO BID 30 Days #60 odt - Antipsychotic Medications Pt discharged on 2 or more routine antipsychotic medications: No
== END 2017-04-27 13:45 | disposition home or self-care (01) | DRG 430 ==
LOC: H.ER 18:27 → H.ERHOLD 21:19 → H.PSYCH 23:40
PROVIDERS: ADMIT Psychiatry & Neurology Psychiatry; ATTEND Psychiatry & Neurology Psychiatry
PROC: HZ59ZZZ Individual Psychotherapy for Substance Abuse Treatment, Supportive (ICD-10-PCS; principal; 2017-04-19)
PROC: GZHZZZZ Group Psychotherapy (ICD-10-PCS; 2017-04-19)
DX: F25.9 Schizoaffective disorder, unspecified (principal); Z91.14 Patient's other noncompliance with medication regimen; F12.90 Cannabis use, unspecified, uncomplicated; F16.90 Hallucinogen use, unspecified, uncomplicated

== ENCOUNTER 2017-07-19 21:57 | Emergency (ER) | payer MEDICAID, OTHER ==
[2017-07-19 21:57] VITALS: BMI 26.6
[2017-07-19 22:04] VITALS: RESP 18; O2SAT 99
--- NOTE | 2017-07-19 22:36 | ED PDOC ---
HPI: Psych/Substance Abuse Time Seen by Provider: 07/19/17 22:15 Chief Complaint (Nursing): Alcohol Ingestion Chief Complaint (Provider): etoh History Per: Patient, EMS Additional Complaint(s): 31-year-old non-domicile male presents to emergency department acutely intoxicated. Patient was found with empty bottle of vodka lying in the street. He arrives via ambulance. Patient is responsive to painful stimuli upon arrival PMD: none Past Medical History Reviewed: Historical Data, Nursing Documentation, Vital Signs Vital Signs: Last Vital Signs Temp 98.1 F 07/19/17 22:01 Pulse 62 07/19/17 22:01 Resp 18 07/19/17 22:01 BP 115/65 07/19/17 22:01 Pulse Ox 99 07/19/17 22:01 - Medical History PMH: Schizophrenia - Family History Family History: States: Unknown Family Hx - Living Arrangements Living Arrangements: Other (non domiciled) - Social History Alcohol: > 2 Drinks/Day - Home Medications Home Medications: Ambulatory Orders Medication Instructions Recorded Benztropine [Cogentin] 0.5 mg PO BID 30 Days #60 tab 04/27/17 Divalproex [Depakote DR(*BID*)] 750 mg PO BID 30 Days #90 tcp 04/27/17 Risperidone [Risperdal M-TAB] 1 mg PO BID 30 Days #60 odt 04/27/17 - Allergies Allergies/Adverse Reactions: Allergies Allergy/AdvReac Type Severity Reaction Status Date / Time No Known Allergies Allergy Verified 04/06/17 08:10 Review of Systems ROS Statement: Except As Marked, All Systems Reviewed And Found Negative Psych: Positive for: Other (etoh) Physical Exam - Reviewed Nursing Documentation Reviewed: Yes Vital Signs Reviewed: Yes - Physical Exam Appears: Positive for: Well, Non-toxic, No Acute Distress Skin: Negative for: Rash Eye Exam: Positive for: Normal appearance Cardiovascular/Chest: Positive for: Regular Rate, Rhythm Respiratory: Positive for: Normal Breath Sounds Neurologic/Psych: Positive for: Other (Intoxicated, responsive to painful stimuli) - ECG O2 Sat by Pulse Oximetry: 99 Pulse Ox Interpretation: Normal Medical Decision Making Medical Decision Makin31 year old intoxicated male Plan: BAL Fingerstick BAL: 230 Fingerstick: 115 Disposition - Clinical Impression Clinical Impression: Alcohol intoxication - Patient ED Disposition Is Patient to be Admitted: Transfer of Care - Disposition Disposition: Transfer of Care Disposition Time: 23:55 Condition: FAIR Forms: [facility] (Bermudian) Patient Signed Over To: Debra Littlejohn Handoff Comments: Signed out pending sobriety and final dispo
--- NOTE | 2017-07-20 05:16 | ED PDOC ---
- ECG O2 Sat by Pulse Oximetry: 99 - Progress ED Course And Treament: Case endorsed to television writer from [employer] pending sobriety 07/20/17 00:00 Patient sleeping; no distress 1:30 Patient sleeping; no distress 3:00 Patient sleeping; no distress 4:30 Patient sleeping; no distress 5:00 Patient awake, alert, oriented x3. Ambulating steady gait. Stable for discharge. Disposition - Clinical Impression Clinical Impression: Alcohol intoxication - POA Present On Arrival: None - Disposition Disposition: Routine/Home Disposition Time: 05:16 Condition: STABLE Instructions: Alcohol Abuse and Alcoholism (DC)
[2017-07-20 05:22] VITALS: BP 106/59; PULSE 68; TEMP 97.6
== END 2017-07-20 05:45 | disposition home or self-care (01) ==
LOC: H.ER 21:57
DX: F10.129 Alcohol abuse with intoxication, unspecified (principal); F20.9 Schizophrenia, unspecified

== ENCOUNTER 2017-08-28 12:51 | Emergency (ER) | payer OTHER ==
[2017-08-28 13:24] VITALS: PULSE 88; RESP 18; TEMP 98.9; O2SAT 98
--- NOTE | 2017-08-28 13:43 | ED PDOC ---
HPI: Psych/Substance Abuse Time Seen by Provider: 08/28/17 13:31 Chief Complaint (Nursing): Substance Abuse Chief Complaint (Provider): Homeless ED Caveat: Uncooperative History Per: Patient Past Medical History Vital Signs: Last Vital Signs Temp 98.9 F 08/28/17 13:21 Pulse 88 08/28/17 13:21 Resp 18 08/28/17 13:21 BP Pulse Ox 98 08/28/17 13:21 - Family History Family History: States: No Known Family Hx - Allergies Allergies/Adverse Reactions: Allergies Allergy/AdvReac Type Severity Reaction Status Date / Time No Known Allergies Allergy Verified 08/28/17 13:21 Review of Systems ROS Statement: Except As Marked, All Systems Reviewed And Found Negative Psych: Positive for: Anxiety Physical Exam - Reviewed Nursing Documentation Reviewed: Yes Vital Signs Reviewed: Yes - Physical Exam Appears: Positive for: Non-toxic, No Acute Distress Head Exam: Positive for: ATRAUMATIC, NORMAL INSPECTION, NORMOCEPHALIC Neck: Positive for: Normal Cardiovascular/Chest: Positive for: Regular Rate, Rhythm, Chest Non Tender. Negative for: Edema, Bradycardia, Tachycardia Respiratory: Positive for: Normal Breath Sounds. Negative for: Stridor, Wheezing, Respiratory Distress Pulses-Carotid (L): 2+ Pulses-Carotid (R): 2+ Pulses-Radial (L): 2+ Pulses-Radial (R): 2+ - ECG O2 Sat by Pulse Oximetry: 98 Medical Decision Making Medical Decision Making: Pt does not appear or act under the influence of any substance including etoh or illicit drugs; pt requests discharge and this is appropriate; pt is in need of no medical treatment and has no medical complaints Disposition - Clinical Impression Clinical Impression: Homeless - Patient ED Disposition Is Patient to be Admitted: No - Disposition Disposition: Routine/Home Disposition Time: 13:44 Condition: GOOD
== END 2017-08-28 14:59 | disposition home or self-care (01) ==
LOC: EDBD → H.ER 12:51 → MERGE 12:51 → H.ER 14:59
DX: Z59.0 Homelessness (principal)

== ENCOUNTER 2017-08-30 23:04 | Emergency (ER) | payer OTHER ==
[2017-08-30 23:05] VITALS: BMI 26.6
[2017-08-30 23:08] VITALS: TEMP 98.5
--- NOTE | 2017-08-31 00:21 | ED PDOC ---
HPI: General Adult Time Seen by Provider: 08/30/17 23:29 Chief Complaint (Nursing): Medical Clearance Chief Complaint (Provider): clearance for incarceration History Per: Patient Additional Complaint(s): 31 y/o male here in police custody for medical/psychiatric clearance for incarceration. Patient denies acute medical or psychiatric complaints. Past Medical History Reviewed: Historical Data, Nursing Documentation, Vital Signs Vital Signs: Last Vital Signs Temp 98.5 F 08/30/17 23:06 Pulse 98 H 08/30/17 23:06 Resp 16 08/30/17 23:06 BP 161/98 H 08/30/17 23:06 Pulse Ox 100 08/31/17 00:21 - Medical History PMH: Schizophrenia Denies: Diabetes, Hepatitis, HIV, HTN, Chronic Kidney Disease, Seizures, Sexually Transmitted Disease - Surgical History Surgical History: No Surg Hx - Family History Family History: States: No Known Family Hx - Home Medications Home Medications: Ambulatory Orders Medication Instructions Recorded Benztropine [Cogentin] 0.5 mg PO BID 30 Days #60 tab 04/27/17 Divalproex [Depakote DR(*BID*)] 750 mg PO BID 30 Days #90 tcp 04/27/17 Risperidone [Risperdal M-TAB] 1 mg PO BID 30 Days #60 odt 04/27/17 - Allergies Allergies/Adverse Reactions: Allergies Allergy/AdvReac Type Severity Reaction Status Date / Time No Known Allergies Allergy Verified 08/30/17 23:06 Review of Systems ROS Statement: Except As Marked, All Systems Reviewed And Found Negative Physical Exam - Reviewed Nursing Documentation Reviewed: Yes Vital Signs Reviewed: Yes - Physical Exam Appears: Positive for: Well, Non-toxic, No Acute Distress Head Exam: Positive for: ATRAUMATIC, NORMAL INSPECTION, NORMOCEPHALIC Skin: Positive for: Normal Color Eye Exam: Positive for: Normal appearance ENT: Positive for: Normal ENT Inspection Cardiovascular/Chest: Positive for: Regular Rate, Rhythm Respiratory: Positive for: Normal Breath Sounds Gastrointestinal/Abdominal: Positive for: Normal Exam Back: Positive for: Normal Inspection Extremity: Positive for: Normal ROM Neurologic/Psych: Positive for: Alert, Oriented - ECG O2 Sat by Pulse Oximetry: 100 - Progress ED Course And Treament: Patient evaluated by apron worker and cleared for discharge as per Dr. Michel Disposition - Clinical Impression Clinical Impression: Adjustment disorder - Patient ED Disposition Is Patient to be Admitted: No Counseled Patient/Family Regarding: Diagnosis, Need For Followup - Disposition Disposition: Discharged/Transfer to Law Enforcement Disposition Time: 01:04 Condition: STABLE Additional Instructions: Patient medically and psychiatrically cleared for incarceration Instructions: Adjustment Disorder
[2017-08-31 01:19] VITALS: BP 134/68; PULSE 79; RESP 18; O2SAT 96
== END 2017-08-31 01:36 ==
LOC: EDBD → H.ER 23:04
DX: F43.20 Adjustment disorder, unspecified

== ENCOUNTER 2017-11-01 16:06 | Emergency (ER) | payer OTHER ==
[2017-11-01 16:15] VITALS: BMI 25.1
[2017-11-01] MEDS ORDERED: Sodium Chloride 0.9% 1,000 ML IV STA (16:17)
[2017-11-01 16:29] VITALS: RESP 15
[2017-11-01] MEDS ORDERED: Dextrose 5%/0.9% NS 1,000 ML IV ONE (16:30)
--- NOTE | 2017-11-01 16:34 | ED PDOC ---
HPI: Psych/Substance Abuse Time Seen by Provider: 11/01/17 16:14 Chief Complaint (Nursing): Substance Abuse Chief Complaint (Provider): Unresponsive History Per: EMS History/Exam Limitations: other (unresponsive) Current Symptoms Are (Timing): Still Present Additional Complaint(s): 31 year old male presents to the ED unable to give history due to unresponsiveness. Patient was brought here via EMS and [place] [employer] after he was found by neighbors poorly responsive and not able to walk on his own. he was given two doses of intranasal Narcan with minimal response. Previous ER visits have been for substance abuse including PCP, alcohol and marijuana use. PMD: none provided Past Medical History Reviewed: Historical Data, Nursing Documentation, Vital Signs, Unable To Obtain (due to unresponsivenes) Vital Signs: Last Vital Signs Temp 97.8 F 11/01/17 16:26 Pulse 87 11/01/17 16:26 Resp 15 11/01/17 16:26 BP 98/53 L 11/01/17 16:26 Pulse Ox 99 11/01/17 16:26 - Medical History PMH: Schizophrenia Denies: Diabetes, Hepatitis, HIV, HTN, Chronic Kidney Disease, Seizures, Sexually Transmitted Disease - Family History Family History: States: Unknown Family Hx - Home Medications Home Medications: Ambulatory Orders Medication Instructions Recorded Benztropine [Cogentin] 0.5 mg PO BID 30 Days #60 tab 04/27/17 Divalproex [Depakote DR(*BID*)] 750 mg PO BID 30 Days #90 tcp 04/27/17 Risperidone [Risperdal M-TAB] 1 mg PO BID 30 Days #60 odt 04/27/17 - Allergies Allergies/Adverse Reactions: Allergies Allergy/AdvReac Type Severity Reaction Status Date / Time No Known Allergies Allergy Verified 08/30/17 23:06 Review of Systems Review Of Systems: ROS cannot be obtained secondary to pt's inabilty to answer questions. Physical Exam - Reviewed Nursing Documentation Reviewed: Yes Vital Signs Reviewed: Yes - Physical Exam Appears: Positive for: In Acute Distress (obtunded; unresponsive to voice; likely intoxicated ) Head Exam: Positive for: ATRAUMATIC, NORMOCEPHALIC Eye Exam: Positive for: EOMI, Conjunctival injection, Other (pupils are midpoint and reactive sluggishly; roving eye movements) ENT: Positive for: Pharynx Is (clear; gag reflex intact). Negative for: TM Is/ Are (hemotympanic) Neck: Positive for: Painless ROM, Supple, Trachea Midline Cardiovascular/Chest: Positive for: Tachycardia (with regular rhythm). Negative for: Murmur Respiratory: Positive for: Normal Breath Sounds. Negative for: Accessory Muscle Use, Wheezing, Respiratory Distress Gastrointestinal/Abdominal: Positive for: Soft. Negative for: Tenderness Back: Positive for: Normal Inspection. Negative for: Decreased ROM Extremity: Positive for: Normal ROM. Negative for: Deformity Lymphatic: Negative for: Adenopathy Neurologic/Psych: Positive for: Other (responsive to deep painful stimuli). Negative for: Alert, Oriented, Motor/Sensory Deficits (moves all extremities with equal strength in reponse to pain) - Laboratory Results Result Diagrams: 11/01/17 17:00 11/01/17 17:00 - ECG O2 Sat by Pulse Oximetry: 99 (RA) Pulse Ox Interpretation: Normal Medical Decision Making Medical Decision Making: Time: 14:16 Impression: AMS Differential diagnoses include but are not limited to: drug intox, traumatic brain injury, electrolyte abnormality, dehydration, metabolic encephalopathy Initial Plan: --Ct head --Alcohol serum --CMP --CBC with diff --Urine drug --Urine dip --mag --Phosphorus --Valproic acid --Dextrose 5% in NS IV 150 mls/hr --NS IV 1,000 mls/hr --Accucheck Labs demonstrated markedly elevated BAL. No emergently significant lab abnormalities. Banana bag ordered. 1700 Pt somnolent. Arousable to tactile stimulation. 2100 Pt woke up and got off bed to urinate. Appears to be more alert, conversive, requesting food. 2200 Pt ambulating without difficulty. No signs of withdrawal. Oriented x 3. Stable for dc. Scribe Attestation: Documented by Rosibel Montanez, acting as a scribe for Emperatriz Guerrero MD Provider Scribe Attestation: All medical record entries made by the Scribe were at my direction and personally dictated by me. I have reviewed the chart and agree that the record accurately reflects my personal performance of the history, physical exam, medical decision making, and the department course for this patient. I have also personally directed, reviewed, and agree with the discharge instructions and disposition. Disposition - Clinical Impression Clinical Impression: Alcohol intoxication Counseled Patient/Family Regarding: Studies Performed, Diagnosis, Need For Followup - Disposition Referrals: Alcoholics Anonymous [Outside] [facility] [Outside] Disposition: Routine/Home Disposition Time: 21:58 Condition: IMPROVED Instructions: Alcohol Abuse and Alcoholism (DC)
--- NOTE | 2017-11-01 17:25 | CT ---
PROCEDURE: CT HEAD WITHOUT CONTRAST. HISTORY: unresponsive COMPARISON: 04/06/2017 TECHNIQUE: Axial computed tomography images were obtained through the head/brain without intravenous contrast. Radiation dose: Total exam DLP = 808.44 mGy-cm. This CT exam was performed using one or more of the following dose reduction techniques: Automated exposure control, adjustment of the mA and/or kV according to patient size, and/or use of iterative reconstruction technique. FINDINGS: HEMORRHAGE: No intracranial hemorrhage. BRAIN: No mass effect or edema. No atrophy or chronic microvascular ischemic changes. VENTRICLES: Unremarkable. No hydrocephalus. CALVARIUM: Unremarkable. PARANASAL SINUSES: Unremarkable as visualized. No significant inflammatory changes. MASTOID AIR CELLS: Unremarkable as visualized. No inflammatory changes. OTHER FINDINGS: None. IMPRESSION: Normal CT of the Head. No intracranial mass, hemorrhage or evidence of acute infarct.
[2017-11-01 17:30] LABS: BASO # 0.1 K/uL (0.0-0.2); BASO % 0.9 % (0.0-2.0); EOS # 0.1 K/uL (0.0-0.7); EOS % 1.6 % (0.0-4.0); HEMOGLOBIN 13.8 g/dL (12.0-18.0); LYMPH # 1.5 K/uL (1.0-4.3); LYMPH % 21.7 % (20.0-40.0); MEAN CELL VOLUME 94.2 fl (80.0-94.0); MEAN CORPUSCULAR HEMOGLOBIN 31.6 pg (27.0-31.0); MEAN CORPUSCULAR HGB CONC 33.6 g/dL (33.0-37.0); MEAN PLATELET VOLUME 9.2 fl (7.2-11.7); MONO # 0.4 K/uL (0.0-0.8); MONO % 5.4 % (0.0-10.0); NEUT # 4.8 K/uL (1.8-7.0); NEUT % 70.4 % (50.0-75.0); RBC 4.35 Mil/uL (4.40-5.90); RED CELL DISTRIBUTION WIDTH 13.8 % (11.5-14.5); WHITE BLOOD COUNT 6.8 K/uL (4.8-10.8)
[2017-11-01 17:46] LABS: PHENCYCLIDINE, UR NEGATIVE (NEGATIVE)
[2017-11-01 17:47] LABS: ALB/GLOB RATIO 1.2 (1.0-2.1); ALBUMIN 4.1 g/dL (3.5-5.0); ALT/SGPT 37 U/L (21-72); AST/SGOT 37 U/L (17-59); BARBITURATES, UR NEGATIVE (NEGATIVE); BENZODIAZEPINES, UR NEGATIVE (NEGATIVE); BLOOD UREA NITROGEN 12 mg/dl (9-20); CALCIUM 8.8 mg/dL (8.4-10.2); GFR AFRICAN-AMERICAN > 60; GFR NON-AFRICAN AMERICAN > 60; OPIATES, UR NEGATIVE (NEGATIVE)
[2017-11-01] MEDS ORDERED: Multivitamin (MVI) 10 ML, Thiamine 100 MG, Folic Acid 1 MG in Dextrose 5%/0.45% NS 1,00... IV ONE (17:58)
[2017-11-01 22:19] VITALS: BP 115/68; PULSE 77; TEMP 98.1
[2017-11-02 16:09] VITALS: O2SAT 99
--- NOTE | 2017-11-03 10:57 | CARD ---
APPROVED REPORT EKG Measurement Heart [id number] <Conclusion> Sinus tachycardia Possible Left atrial enlargement Left ventricular hypertrophy Early repolarization Abnormal ECG
== END 2017-11-01 22:17 | disposition home or self-care (01) ==
LOC: H.ER 16:06
DX: F10.129 Alcohol abuse with intoxication, unspecified (principal); F12.90 Cannabis use, unspecified, uncomplicated; F20.9 Schizophrenia, unspecified; F19.10 Other psychoactive substance abuse, uncomplicated; R40.20 Unspecified coma
CPT/HCPCS: 70450; 80053; 80164; 80320; 80324; 80345; 80346; 80349; 80353; 80358; 80361; 82948; 83735; 83992; 84100; 85025; 93005; 96374; 99284; J3411; J7040; J7042